=== PATIENT | female | born 1980 | race Caucasian/White ===

== ENCOUNTER 2016-04-15 15:40 | Emergency (ER) | payer OTHER ==
--- NOTE | 2016-04-15 16:44 | DIAGNOSTIC IMAGING REPORT ---
PROCEDURE: XR KNEE 4 VIEWS - RIGHT INDICATION: TRAUMA/INJURY TECHNIQUE: Four views of the right knee. COMPARISON: None. FINDINGS: Normal mineralization. No fractures. Mild medial joint space compartment loss with small marginal spurs. Trace enthesopathic change at the ACL insertion. Otherwise normal osseous alignment. No joint effusion. No suspicious soft-tissue calcification or radiodense foreign bodies. IMPRESSION: 1. Mild medial compartment joint space loss. 2. Otherwise normal right knee.
--- NOTE | 2016-04-15 16:58 | ED ORDER SUMMARY ---
..... Patient: URIEL AN OrderSheet [facility] VisitID: [id number] [place] [address] 35y, F Registration Date/Time: 04/15/2016 ORDER SHEET Weight: 110.2 kg (stated) Allergies: Amoxicillin, control patch, Codeine, Penicillins GENERAL ORDERS: Knee 4V Right Urgent (16:10 04/15/2016 HBivens A.R.N.P.) (Ack 16:11 LNations ER Tech1) (16:19 Raul) MEDICATION ORDERS: IV FLUIDS: ORDER SHEET NOTES: [Electronically signed by Bailey Jacobo A.R.N.P. (17:40 04/15/2016)] [Electronically signed by Aristides Connor R.N. (19:03 04/15/2016)] [Electronically locked/signed by Aristides Connor R.N. (19:03 04/15/2016)]
--- NOTE | 2016-04-15 16:58 | ED ORDER SUMMARY ---
..... Patient: URIEL AN OrderSheet [facility] VisitID: [id number] [place] [address] 35y, F Registration Date/Time: 04/15/2016 ORDER SHEET Weight: 110.2 kg (stated) Allergies: Amoxicillin, control patch, Codeine, Penicillins GENERAL ORDERS: Knee 4V Right Urgent (16:10 04/15/2016 HBivens A.R.N.P.) (Ack 16:11 LNations ER Tech1) (16:19 Raul) MEDICATION ORDERS: IV FLUIDS: ORDER SHEET NOTES: [Electronically signed by Bailey Jacobo A.R.N.P. (17:40 04/15/2016)] [Electronically signed by Aristides Connor R.N. (19:03 04/15/2016)] [Electronically locked/signed by Aristides Connor R.N. (19:03 04/15/2016)]
--- NOTE | 2016-04-15 16:58 | ED NURSING NOTES ---
Clinical Report - Nurses [facility] [address] [place] [address] 04/15/2016 15:40 Patient: URIEL AN TRIAGE Triage time 15:59 Apr 15 2016. Acuity: LEVEL 3. Chief Complaint: INJURY TO RIGHT KNEE and RIGHT ANKLE. KENIA COMA SCORE: Kenia Coma Scale: 15- eyes open spontaneously (4); best verbal response- oriented x 4 (5); best motor response- obeys commands (6). --16:05 Aristides Connor R.N. 15:58 04/15/16. BP: 150/88. HR: 98. RR: 20. O2 saturation: 100%. Temp: 98.4 F. --16:05 Aristides Connor R.N. Weight: 110.2 kg stated. Height/Length: 67 inches Per Patient. BMI: 38.1. --16:05 Aristides Connor R.N. Medications Control Pills. CeleXA Oral. Ibuprofen Oral. Oxycarbamazipine. Pseudogest. Ranitidine HCl Oral. Zyrtec. --16:02 Aristides Connor R.N. Methocarbamol Oral. --16:02 Aristides Connor R.N. Allergies Amoxicillin. control patch. Codeine. Penicillins. --16:02 Aristides Connor R.N. History Arrived by private vehicle. Historian: patient. This occurred (Saturday). Mechanism of injury: sustained a twisting injury and fell. ( Was at the [employer] park and fell and caught her ankle in a mat. Since then her right knee keeps popping in and out of alignment. Right ankle aching.). She has had moderate trouble walking (r/t pain and knee popping). The patient has been limping when trying to walk. She has had neck pain (chronic) and back pain (chronic). No numbness, tingling or weakness. 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 PAST MEDICAL HX: Tetanus status: up-to-date. Immunizations: up-to-date. Uses control pills. SOCIAL HX: Never smoker. Occasional alcohol use. No drug use. SELF HARM ASSESSMENT: A self harm assessment was performed. The patient answered "no" to the question "Have you recently felt down, depressed, or hopeless?" and "Do you have thoughts of harming or killing yourself?". ABUSE ASSESSMENT: Abuse assessment: (yes) The patient was asked "Do you feel safe in your home?". --16:05 Aristides Connor R.N. PROBLEMS: Sprain. Cervical Strain. Eustachian Tube Dysfunction. Grief Reaction. Back Pain. Hypertension. Immunizations. Last Tetanus. Fall. Contusion. LNMP - Last Normal Menstrual Period. --16:03 Aristides Connor R.N. ADDITIONAL SURGERIES: Adenoidectomy. Reconstructive facial surgery at 2 . Tonsillectomy. --16:03 Aristides Connor R.N. Interventions ID band on patient. --16:05 Aristides Connor R.N. PHYSICAL ASSESSMENT Ambulatory to room. GENERAL / NEURO / PSYCH: Oriented X 4. Alert. Appears in no acute distress. EXTREMITIES: Capillary refill is less than 2 seconds in the extremities. Extremity pulses are within normal limits. Extremities exhibit normal ROM. Pain with weight bearing. Limping gait. Neuro-vascular status intact to the extremity. Right knee: tenderness and swelling. Right ankle: tenderness. SKIN: Skin intact. Skin is warm and dry. --16:06 Aristides Connor R.N. NURSING PROGRESS NOTES Cold pack applied. Patient gowned. Reassurance given. Call light placed in reach. Side rails up x 1. Bed placed in lowest position. Brakes of bed on. --16:06 Aristides Connor R.N. DISPOSITION / DISCHARGE Departure time: 17:20 Apr 15 2016. Condition at departure: improved. No learning barriers present. Discharge instructions provided and reviewed with the patient. Reviewed warnings. Reviewed medication(s). Treatments reviewed. Reviewed referrals. Patient verbalized understanding. Written instructions provided in Czech. The patient was discharged home. She left the Emergency Department ambulatory and via private vehicle. Patient driving. --17:40 Aristides Connor R.N. 17:39 04/15/16. BP: 142/84. HR: 87. RR: 18. O2 saturation: 98%. Temp: 98.2 F. Pain level now 06/20. --17:40 Aristides Connor R.N. Locked/Released at 04/15/2016 19:03 by Aristides Connor R.N.
--- NOTE | 2016-04-15 16:58 | ED CLINICAL REPORT ---
Clinical Report - Physicians/Mid Levels [facility] [address] [place] [address] 04/15/2016 15:40 Patient: URIEL AN Time Seen: 16:03; initial patient contact, initial documentation, patient care assumed. Arrived- By private vehicle. Historian- patient. HISTORY OF PRESENT ILLNESS Chief Complaint: Injury to right knee. The injury happened about 3 days ago. ([employer]). Patient is experiencing moderate pain. Patient denies injury to the head or neck. No other injury. (states she did something to it at [employer], and now it hurts and it sticks and she has to force it to move it and it pops). REVIEW OF SYSTEMS The patient complains of pain on weight bearing. No swelling, tingling or skin laceration. All systems otherwise negative, except as recorded above. PAST HISTORY See nurses notes. ( PROBLEMS: Sprain. Cervical Strain. Eustachian Tube Dysfunction. Grief Reaction. Back Pain. Hypertension. Immunizations. Last Tetanus. Fall. Contusion. LNMP - Last Normal Menstrual Period. --16:03 Aristides Connor RNoni. ADDITIONAL SURGERIES: Adenoidectomy. Reconstructive facial surgery at 2 . Tonsillectomy. --16:03 Aristides Connor R.N.). SOCIAL HISTORY Never smoker. Occasional alcohol use. No drug use. No recent travel. Is a local resident. FAMILY HISTORY No significant family medical history. ADDITIONAL NOTES The nursing notes have been reviewed with agreement regarding the chief complaint, HPI, ROS, PMH and patient medications and allergies. PHYSICAL EXAM Vital Signs: 04/15/2016 15:58 BP: 150/88. HR: 98. RR: 20. O2 saturation: 100%. Temp: 98.4 F. Have been reviewed as normal and appear to be correct. Appearance: Alert. Oriented X3. No acute distress. Head: Head atraumatic. Eyes: Pupils equal, round and reactive to light. Eyes normal inspection. Respiratory: No respiratory distress. Skin: Skin intact. Skin warm and dry. Normal skin color. Normal skin turgor. Extremities: Lower extremity exam otherwise negative. Extremities otherwise negative. Neuro, Vascular and Tendons: Vascular status intact. Sensation intact. Motor intact. Tendon function intact. Gait: Normal gait. Neuro: Oriented X 3. No motor deficit. No sensory deficit. Note: isolated injury to knee. LABS, X-RAYS, AND EKG X-Rays: Right knee negative. Rt Knee X-ray: (IMPRESSION: 1. Mild medial compartment joint space loss. 2. Otherwise normal right knee. Electronically Final signed by:Santa Chavira MD 04/15/2016 4:44:55 PM). PROGRESS AND PROCEDURES Course of Care: 17:17 04/15/16. pt asked for something else besides Naprosyn. Patient counseled in person regarding the patient's stable condition, test results and diagnosis. 16:51. Differential Diagnosis: I considered fracture, stress fracture, bone contusion, sprain, hyperextension, dislocation, meniscus tear, anterior cruciate ligament tear, ligament tear, soft tissue injury, soft tissue hematoma, myositis, fasciitis, tendonitis and bursitis as a possible cause of lower extremity pain in this patient. This is a partial list of diagnoses considered. Above considerations are based on history, physical exam and X-Ray data. Differential diagnosis was discussed with patient. Disposition: Discharged home in good and improved condition (16:58). Condition: good and stable. CLINICAL IMPRESSION Sprain of the right knee. INSTRUCTIONS Warnings: GENERAL WARNINGS: Return or contact your physician immediately if your condition worsens or changes unexpectedly, if not improving as expected, or if other problems arise. Specifically return if problem worsens. Prescription Medications: Ultram 50 mg: take 1 orally every 6 hours as needed for pain. Dispense ten (10). No refills. Follow-up: Follow up with your doctor in about one week as needed. Call for an appointment. Summary of care provided to patient. Understanding of the discharge instructions verbalized by patient. (Electronically signed by Bailey Jacobo A.R.N.P. 04/15/2016 17:40)
--- NOTE | 2016-04-15 16:58 | ED CLINICAL REPORT ---
Clinical Report - Physicians/Mid Levels [facility] [address] [place] [address] 04/15/2016 15:40 Patient: URIEL AN Time Seen: 16:03; initial patient contact, initial documentation, patient care assumed. Arrived- By private vehicle. Historian- patient. HISTORY OF PRESENT ILLNESS Chief Complaint: Injury to right knee. The injury happened about 3 days ago. ([employer]). Patient is experiencing moderate pain. Patient denies injury to the head or neck. No other injury. (states she did something to it at [employer], and now it hurts and it sticks and she has to force it to move it and it pops). REVIEW OF SYSTEMS The patient complains of pain on weight bearing. No swelling, tingling or skin laceration. All systems otherwise negative, except as recorded above. PAST HISTORY See nurses notes. ( PROBLEMS: Sprain. Cervical Strain. Eustachian Tube Dysfunction. Grief Reaction. Back Pain. Hypertension. Immunizations. Last Tetanus. Fall. Contusion. LNMP - Last Normal Menstrual Period. --16:03 Aristides Connor RNoni. ADDITIONAL SURGERIES: Adenoidectomy. Reconstructive facial surgery at 2 . Tonsillectomy. --16:03 Aristides Connor R.N.). SOCIAL HISTORY Never smoker. Occasional alcohol use. No drug use. No recent travel. Is a local resident. FAMILY HISTORY No significant family medical history. ADDITIONAL NOTES The nursing notes have been reviewed with agreement regarding the chief complaint, HPI, ROS, PMH and patient medications and allergies. PHYSICAL EXAM Vital Signs: 04/15/2016 15:58 BP: 150/88. HR: 98. RR: 20. O2 saturation: 100%. Temp: 98.4 F. Have been reviewed as normal and appear to be correct. Appearance: Alert. Oriented X3. No acute distress. Head: Head atraumatic. Eyes: Pupils equal, round and reactive to light. Eyes normal inspection. Respiratory: No respiratory distress. Skin: Skin intact. Skin warm and dry. Normal skin color. Normal skin turgor. Extremities: Lower extremity exam otherwise negative. Extremities otherwise negative. Neuro, Vascular and Tendons: Vascular status intact. Sensation intact. Motor intact. Tendon function intact. Gait: Normal gait. Neuro: Oriented X 3. No motor deficit. No sensory deficit. Note: isolated injury to knee. LABS, X-RAYS, AND EKG X-Rays: Right knee negative. Rt Knee X-ray: (IMPRESSION: 1. Mild medial compartment joint space loss. 2. Otherwise normal right knee. Electronically Final signed by:Santa Chavira MD 04/15/2016 4:44:55 PM). PROGRESS AND PROCEDURES Course of Care: 17:17 04/15/16. pt asked for something else besides Naprosyn. Patient counseled in person regarding the patient's stable condition, test results and diagnosis. 16:51. Differential Diagnosis: I considered fracture, stress fracture, bone contusion, sprain, hyperextension, dislocation, meniscus tear, anterior cruciate ligament tear, ligament tear, soft tissue injury, soft tissue hematoma, myositis, fasciitis, tendonitis and bursitis as a possible cause of lower extremity pain in this patient. This is a partial list of diagnoses considered. Above considerations are based on history, physical exam and X-Ray data. Differential diagnosis was discussed with patient. Disposition: Discharged home in good and improved condition (16:58). Condition: good and stable. CLINICAL IMPRESSION Sprain of the right knee. INSTRUCTIONS Warnings: GENERAL WARNINGS: Return or contact your physician immediately if your condition worsens or changes unexpectedly, if not improving as expected, or if other problems arise. Specifically return if problem worsens. Prescription Medications: Ultram 50 mg: take 1 orally every 6 hours as needed for pain. Dispense ten (10). No refills. Follow-up: Follow up with your doctor in about one week as needed. Call for an appointment. Summary of care provided to patient. Understanding of the discharge instructions verbalized by patient. (Electronically signed by Bailey Jacobo A.R.N.P. 04/15/2016 17:40)
--- NOTE | 2016-04-15 16:58 | ED NURSING NOTES ---
Clinical Report - Nurses [facility] [address] [place] [address] 04/15/2016 15:40 Patient: URIEL AN TRIAGE Triage time 15:59 Apr 15 2016. Acuity: LEVEL 3. Chief Complaint: INJURY TO RIGHT KNEE and RIGHT ANKLE. KENIA COMA SCORE: Kenia Coma Scale: 15- eyes open spontaneously (4); best verbal response- oriented x 4 (5); best motor response- obeys commands (6). --16:05 Aristides Connor R.N. 15:58 04/15/16. BP: 150/88. HR: 98. RR: 20. O2 saturation: 100%. Temp: 98.4 F. --16:05 Aristides Connor R.N. Weight: 110.2 kg stated. Height/Length: 67 inches Per Patient. BMI: 38.1. --16:05 Aristides Connor R.N. Medications Control Pills. CeleXA Oral. Ibuprofen Oral. Oxycarbamazipine. Pseudogest. Ranitidine HCl Oral. Zyrtec. --16:02 Aristides Connor R.N. Methocarbamol Oral. --16:02 Aristides Connor R.N. Allergies Amoxicillin. control patch. Codeine. Penicillins. --16:02 Aristides Connor R.N. History Arrived by private vehicle. Historian: patient. This occurred (Saturday). Mechanism of injury: sustained a twisting injury and fell. ( Was at the [employer] park and fell and caught her ankle in a mat. Since then her right knee keeps popping in and out of alignment. Right ankle aching.). She has had moderate trouble walking (r/t pain and knee popping). The patient has been limping when trying to walk. She has had neck pain (chronic) and back pain (chronic). No numbness, tingling or weakness. 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 PAST MEDICAL HX: Tetanus status: up-to-date. Immunizations: up-to-date. Uses control pills. SOCIAL HX: Never smoker. Occasional alcohol use. No drug use. SELF HARM ASSESSMENT: A self harm assessment was performed. The patient answered "no" to the question "Have you recently felt down, depressed, or hopeless?" and "Do you have thoughts of harming or killing yourself?". ABUSE ASSESSMENT: Abuse assessment: (yes) The patient was asked "Do you feel safe in your home?". --16:05 Aristides Connor R.N. PROBLEMS: Sprain. Cervical Strain. Eustachian Tube Dysfunction. Grief Reaction. Back Pain. Hypertension. Immunizations. Last Tetanus. Fall. Contusion. LNMP - Last Normal Menstrual Period. --16:03 Aristides Connor R.N. ADDITIONAL SURGERIES: Adenoidectomy. Reconstructive facial surgery at 2 . Tonsillectomy. --16:03 Aristides Connor R.N. Interventions ID band on patient. --16:05 Aristides Connor R.N. PHYSICAL ASSESSMENT Ambulatory to room. GENERAL / NEURO / PSYCH: Oriented X 4. Alert. Appears in no acute distress. EXTREMITIES: Capillary refill is less than 2 seconds in the extremities. Extremity pulses are within normal limits. Extremities exhibit normal ROM. Pain with weight bearing. Limping gait. Neuro-vascular status intact to the extremity. Right knee: tenderness and swelling. Right ankle: tenderness. SKIN: Skin intact. Skin is warm and dry. --16:06 Aristides Connor R.N. NURSING PROGRESS NOTES Cold pack applied. Patient gowned. Reassurance given. Call light placed in reach. Side rails up x 1. Bed placed in lowest position. Brakes of bed on. --16:06 Aristides Connor R.N. DISPOSITION / DISCHARGE Departure time: 17:20 Apr 15 2016. Condition at departure: improved. No learning barriers present. Discharge instructions provided and reviewed with the patient. Reviewed warnings. Reviewed medication(s). Treatments reviewed. Reviewed referrals. Patient verbalized understanding. Written instructions provided in Romanian. The patient was discharged home. She left the Emergency Department ambulatory and via private vehicle. Patient driving. --17:40 Aristides Connor R.N. 17:39 04/15/16. BP: 142/84. HR: 87. RR: 18. O2 saturation: 98%. Temp: 98.2 F. Pain level now 06/20. --17:40 Aristides Connor R.N. Locked/Released at 04/15/2016 19:03 by Aristides Connor R.N.
--- NOTE | 2016-04-15 19:03 | ED MED RECONCILIATION SUMMARY ---
Patient: URIEL AN Medication Reconciliation Report [facility] VisitID: [id number] [address] [place] [address] 35y, F Registration Date/Time: 04/15/2016 Weight: 110.2 kg Height/Length: 67 in. BMI: 38.1 ALLERGIES: Amoxicillin, control patch, Codeine, Penicillins The patient's Home Medications are listed below: THE FOLLOWING MEDICATIONS NEED TO BE RECONCILED: Control Pills CeleXA Oral Ibuprofen Oral Methocarbamol Oral Oxycarbamazipine Pseudogest Ranitidine HCl Oral Zyrtec The source(s) of the original Home Medication information: Not obtained. The following Medications were given to the patient in the Emergency Department: None. The following Medications were prescribed to the patient: Ultram 50 mg: take 1 orally every 6 hours as needed for pain. Dispense ten (10). No refills. -- Bailey Jacobo A.R.N.P.
--- NOTE | 2016-04-15 19:03 | ED MAR SUMMARY ---
..... Medication Administration Record [facility] [address] [place] [address] Patient: URIEL AN Visit ID: [id number] 35y, F Weight: 110.2 kg Height/Length: 67 in BMI: 38.1 ALLERGIES: Amoxicillin, control patch, Codeine, Penicillins
--- NOTE | 2016-04-15 19:03 | ED DISCHARGE INSTRUCTIONS ---
Patient: URIEL AN General Instructions [facility] VisitID: [id number] [place] [address] 35y, F Registration Date/Time: 04/15/2016 Sprain of the right knee. INSTRUCTIONS Warnings: GENERAL WARNINGS: Return or contact your physician immediately if your condition worsens or changes unexpectedly, if not improving as expected, or if other problems arise. Specifically return if problem worsens. Prescription Medications: Ultram 50 mg: take 1 orally every 6 hours as needed for pain. Dispense ten (10). No refills. Follow-up: Follow up with your doctor in about one week as needed. Call for an appointment. Summary of care provided to patient. Understanding of the discharge instructions verbalized by patient. ADDITIONAL INFORMATION Sprain, Knee A sprain is an injury to the ligaments or capsule that holds a joint together. There are no broken bones. Most sprains take three to six weeks to heal. If the ligament is completely torn (severe sprain), it can take months to recover from. Most knee sprains are treated with a splint, knee immobilizer or elastic wrap for support. Severe sprains may require surgery. Home care The following guidelines will help you care for your injury at home: Stay off the injured leg as much as possible until you can walk on it without pain. If you have a lot of pain with walking, crutches or a walker may be prescribed. (These can be rented or purchased at many pharmacies and surgical or orthopedic supply stores). Follow your doctor's advice regarding when to begin bearing weight on that leg. Keep your leg elevated to reduce pain and swelling. When sleeping, place a pillow under the injured leg. When sitting, support the injured leg so it is level with your waist. This is very important during the first 48 hours. Apply an ice pack (ice cubes in a plastic bag, wrapped in a towel) over the injured area for 20 minutes every 12 hours the first day. You can place the ice pack directly over the splint. If a Velcro knee immobilizer was applied, you can open this to apply the ice pack directly to the knee. Continue with ice packs 34 times a day for the next two days, then as needed for the relief of pain and swelling. You may use acetaminophen or ibuprofen to control pain, unless another pain medicine was prescribed. If you have chronic liver or kidney disease or ever had a stomach ulcer or GI bleeding, talk with your doctor before using these medicines. If you were given a splint, keep it completely dry at all times. Bathe with your splint out of the water, protected with a large plastic bag, rubber-banded at the top end. If a fiberglass splint gets wet, you can dry it with a hair-dryer. If you have a Velcro knee immobilizer, you can remove this to bathe, unless told otherwise. Follow-up care Follow up with your doctor as advised. Any X-rays you had today dont show any broken bones, breaks, or fractures. Sometimes fractures dont show up on the first X-ray. Bruises and sprains can sometimes hurt as much as a fracture. These injuries can take time to heal completely. If your symptoms dont improve or they get worse, talk with your doctor. You may need a repeat X-ray. When to seek medical care Get prompt medical attention if any of the following occur: The plaster cast or splint becomes wet or soft The fiberglass cast or splint remains wet for more than 24 hours Pain or swelling increases Toes become cold, blue, numb or tingly Tramadol Hydrochloride Oral tablet What is this medicine? TRAMADOL (TRA ma dole) is a pain reliever. It is used to treat moderate to severe pain in adults. How should I use this medicine? Take this medicine by mouth with a full glass of water. Follow the directions on the prescription label. If the medicine upsets your stomach, take it with food or milk. Do not take more medicine than you are told to take. Talk to your cardiology physician assistant regarding the use of this medicine in children. Special care may be needed. What side effects may I notice from receiving this medicine? Side effects that you should report to your doctor or health home care associate as soon as possible: allergic reactions like skin rash, itching or hives, swelling of the face, lips, or tongue breathing difficulties, wheezing confusion itching light headedness or fainting spells redness, blistering, peeling or loosening of the skin, including inside the mouth seizures Side effects that usually do not require medical attention (report to your doctor or health home care associate if they continue or are bothersome): constipation dizziness drowsiness headache nausea, vomiting What may interact with this medicine? Do not take this medicine with any of the following medications: MAOIs like Carbex, Eldepryl, Marplan, Nardil, and Parnate This medicine may also interact with the following medications: alcohol or medicines that contain alcohol antihistamines benzodiazepines bupropion carbamazepine or oxcarbazepine clozapine cyclobenzaprine digoxin furazolidone linezolid medicines for depression, anxiety, or psychotic disturbances medicines for migraine headache like almotriptan, eletriptan, frovatriptan, naratriptan, rizatriptan, sumatriptan, zolmitriptan medicines for pain like pentazocine, buprenorphine, butorphanol, meperidine, nalbuphine, and propoxyphene medicines for sleep muscle relaxants naltrexone phenobarbital phenothiazines like perphenazine, thioridazine, chlorpromazine, mesoridazine, fluphenazine, prochlorperazine, promazine, and trifluoperazine procarbazine warfarin What if I miss a dose? If you miss a dose, take it as soon as you can. If it is almost time for your next dose, take only that dose. Do not take double or extra doses. Where should I keep my medicine? Keep out of the reach of children. Store at room temperature between 15 and 30 degrees C (59 and 86 degrees F). Keep container tightly closed. Throw away any unused medicine after the expiration date. What should I tell my health care provider before I take this medicine? They need to know if you have any of these conditions: brain tumor depression drug abuse or addiction head injury if you frequently drink alcohol containing drinks kidney disease or trouble passing urine liver disease lung disease, asthma, or breathing problems seizures or epilepsy suicidal thoughts, plans, or attempt; a previous suicide attempt by you or a family member an unusual or allergic reaction to tramadol, codeine, other medicines, foods, dyes, or preservatives or trying to get breast-feeding What should I watch for while using this medicine? Tell your doctor or health home care associate if your pain does not go away, if it gets worse, or if you have new or a different type of pain. You may develop tolerance to the medicine. Tolerance means that you will need a higher dose of the medicine for pain relief. Tolerance is normal and is expected if you take this medicine for a long time. Do not suddenly stop taking your medicine because you may develop a severe reaction. Your body becomes used to the medicine. This does NOT mean you are addicted. Addiction is a behavior related to getting and using a drug for a non-medical reason. If you have pain, you have a medical reason to take pain medicine. Your doctor will tell you how much medicine to take. If your doctor wants you to stop the medicine, the dose will be slowly lowered over time to avoid any side effects. You may get drowsy or dizzy. Do not drive, use machinery, or do anything that needs mental alertness until you know how this medicine affects you. Do not stand or sit up quickly, especially if you are an older patient. This reduces the risk of dizzy or fainting spells. Alcohol can increase or decrease the effects of this medicine. Avoid alcoholic drinks. You may have constipation. Try to have a bowel movement at least every 2 to 3 days. If you do not have a bowel movement for 3 days, call your doctor or health home care associate. Your mouth may get dry. Chewing sugarless gum or sucking hard candy, and drinking plenty of water may help. Contact your doctor if the problem does not go away or is severe. You have been given the following additional information: Knee Sprain Tramadol Hydrochloride Oral tablet (Electronically signed by Bailey Jacobo A.R.N.P. 04/15/2016 17:40)
--- NOTE | 2016-04-15 19:03 | ED MED RECONCILIATION SUMMARY ---
Patient: URIEL AN Medication Reconciliation Report [facility] VisitID: [id number] [address] [place] [address] 35y, F Registration Date/Time: 04/15/2016 Weight: 110.2 kg Height/Length: 67 in. BMI: 38.1 ALLERGIES: Amoxicillin, control patch, Codeine, Penicillins The patient's Home Medications are listed below: THE FOLLOWING MEDICATIONS NEED TO BE RECONCILED: Control Pills CeleXA Oral Ibuprofen Oral Methocarbamol Oral Oxycarbamazipine Pseudogest Ranitidine HCl Oral Zyrtec The source(s) of the original Home Medication information: Not obtained. The following Medications were given to the patient in the Emergency Department: None. The following Medications were prescribed to the patient: Ultram 50 mg: take 1 orally every 6 hours as needed for pain. Dispense ten (10). No refills. -- Bailey Jacobo A.R.N.P.
--- NOTE | 2016-04-15 19:03 | ED MAR SUMMARY ---
..... Medication Administration Record [facility] [address] [place] [address] Patient: URIEL AN Visit ID: [id number] 35y, F Weight: 110.2 kg Height/Length: 67 in BMI: 38.1 ALLERGIES: Amoxicillin, control patch, Codeine, Penicillins
== END 2016-04-15 17:20 | disposition home or self-care (01) ==
LOC: ED SRH 15:40
DX: S83.91XA Sprain of unspecified site of right knee, initial encounter (principal); W01.0XXA Fall on same level from slipping, tripping and stumbling without subsequent striking against object, initial encounter; Y92.830 Public park as the place of occurrence of the external cause; Y93.9 Activity, unspecified; Z88.0 Allergy status to penicillin; Z88.1 Allergy status to other antibiotic agents; Z88.5 Allergy status to narcotic agent